=== PATIENT | male | born 1950 | race American Indian/Alaskan Native ===

== ENCOUNTER 2019-01-07 16:39 | Emergency (ER) | payer MEDICARE ==
[2019-01-07 17:10] VITALS: BP 110/51
[2019-01-07] MEDS ORDERED: REGLAN IV ONE (17:33)
--- NOTE | 2019-01-07 17:35 | Emergency Department Report ---
ED General Adult HPI - General Chief complaint: Dyspnea/Respdistress Stated complaint: DIFFICULTY BREATHING Time Seen by Provider: 01/07/19 17:24 Source: patient, RN notes reviewed, old records reviewed Mode of arrival: Stretcher Limitations: No Limitations - History of Present Illness Initial comments: This is a 68-year-old gentleman. The patient has a past medical history of end- stage renal disease, on dialysis. Typically gets dialysis Thursday, Thursday, Thursday. His last dialysis session was today. It was of normal length, duration. The patient reportedly had right lower hernia repair, electively, at [facility] a few days ago. He presents to the emergency room today with a complaint of shortness of breath and hiccups. He is not having abdominal pain, but he's not had a bowel movement since one day prior to his surgery. Shortness of breath is constant, does not radiate anywhere, is painless, and does not have exacerbating or relieving factors. Hiccups are intermittent since his surgery, intermittent, and do not have exacerbating or relieving factors. He denies new or different abdominal pain, chest pain, focal extremity weakness. -: days(s) Severity scale (0 -10): 0 Quality: other Consistency: other Improves with: other Worsens with: other Associated Symptoms: shortness of breath - Related Data Allergies Allergy/AdvReac Type Severity Reaction Status Date / Time No Known Allergies Allergy Verified 01/07/19 17:10 ED Review of Systems ROS: Stated complaint: DIFFICULTY BREATHING Other details as noted in HPI Constitutional: malaise Eyes: denies: vision change ENT: denies: epistaxis Respiratory: shortness of breath Cardiovascular: denies: chest pain Gastrointestinal: constipation. denies: abdominal pain ED Past Medical Hx - Past Medical History Previous Medical History?: Yes Hx Hypertension: Yes Hx Diabetes: Yes - Surgical History Past Surgical History?: Yes Additional Surgical History: hernia 4 days ago - Social History Smoking Status: Never Smoker Substance Use Type: None ED Physical Exam - General Limitations: No Limitations General appearance: alert, anxious, obese - Head Head exam: Present: atraumatic, normocephalic - Eye Eye exam: Present: normal appearance, EOMI. Absent: nystagmus - ENT ENT exam: Present: normal exam, normal orophraynx, mucous membranes moist, normal external ear exam - Neck Neck exam: Present: normal inspection, full ROM. Absent: tenderness, meningismus - Respiratory Respiratory exam: Present: decreased breath sounds. Absent: respiratory distress - Cardiovascular Cardiovascular Exam: Present: regular rate, normal rhythm, normal heart sounds. Absent: bradycardia, tachycardia, irregular rhythm, systolic murmur, diastolic murmur, rubs, gallop - GI/Abdominal GI/Abdominal exam: Present: soft, tenderness (appropriate postoperative tenderness, no rebound, guarding or peritoneal signs). Absent: distended, guarding, rebound, rigid, pulsatile mass - Rectal Rectal exam: Present: deferred - Extremities Exam Extremities exam: Present: normal inspection, full ROM, pedal edema, other (2+ pulses noted in the bilateral upper, lower extremities. Compartments soft. No long bony tenderness. The pelvis is stable.). Absent: calf tenderness - Back Exam Back exam: Present: normal inspection, full ROM. Absent: tenderness, CVA tenderness (R), paraspinal tenderness, vertebral tenderness - Neurological Exam Neurological exam: Present: alert, oriented X3, other (Extraocular movements intact. Tongue midline. No facial droop. Facial sensation intact to light touch in the V1, V2, V3 distribution bilaterally. 5 and 5 strength in 4 extremities.. Sensation is intact to light touch in 4 extremities.). Absent: motor sensory deficit - Psychiatric Psychiatric exam: Present: normal affect, normal mood - Skin Skin exam: Present: warm, dry, intact, normal color. Absent: rash ED Course Vital Signs 01/07/19 17:04 Temperature 97.2 F L Pulse Rate 91 H Respiratory 16 Rate Blood Pressure 110/51 O2 Sat by Pulse 100 Oximetry - Reevaluation(s) Reevaluation #1: 01/07/19 17:56 Differential diagnosis, including but not limited to: post operative hiccups, diaphragmatic irritation, hyperkalemia, acute coronary syndrome, pulmonary embolus, postoperative constipation, postoperative obstruction Assessment and plan: 68-year-old gentleman, on dialysis, with shortness of breath, hiccups, and constipation. The patient is afebrile, with reassuring vital signs. I recommended a CT scan of the chest to exclude pulmonary embolus, and CT scan of the abdomen and pelvis to exclude postoperative complication, obstruction. The patient is a difficult IV stick, and neither EMS, nor nursing staff were able to establish a peripheral upper extremity IV. This provider attempted right-sided external jugular IV placement, without success, as both sites in the right external jugular vein infiltrated. The patient is now declining additional attempts at IV placement, and he states he does not want medical care at this facility. The patient is going to sign out AGAINST MEDICAL ADVICE. The patient is alert and oriented 3, clinically sober, free from distracting injury, and exhibits decision-making capacity. The risks of leaving without a complete evaluation, including undiagnosed pulmonary embolus, acute coronary syndrome, hyperkalemia, with resultant , disability, paralysis, permanent loss of quality of life were discussed with the patient and family, who verbalized understanding. The patient was counseled to return to the ER right away if and when he changes his mind. ASAEL Holden also present and witnessed conversation 01/07/19 17:59 ED Medical Decision Making - Lab Data Vital Signs 01/07/19 17:04 Temperature 97.2 F L Pulse Rate 91 H Respiratory 16 Rate Blood Pressure 110/51 O2 Sat by Pulse 100 Oximetry - EKG Data -: EKG Interpreted by [facility] EKG shows normal: sinus rhythm Rate: normal - EKG Data 01/07/19 17:58 Sinus, 86 bpm, left axis deviation, left anterior fascicular block, incomplete right bundle branch block, abnormal EKG, not consistent with STEMI. Critical care attestation.: If time is entered above; I have spent that time in minutes in the direct care of this critically ill patient, excluding procedure time. ED Disposition Clinical Impression: Hiccups, ESRD (end stage renal disease) Disposition: DC-07 LEFT AGAINST MED ADVICE Is pt being admited?: No Does the pt Need Aspirin: No Condition: Undetermined Instructions: Chronic Kidney Disease (ED) Additional Instructions: As we discussed, you have left the hospital/emergency room AGAINST MEDICAL ADVICE. By leaving, you risked , disability, paralysis, permanent loss of quality of life. The ER is open 24 hours a day, 7 days a week. It never closes. Please return to the emergency room right away if and when you change your mind. If you decide not to return to the emergency room, please follow-up with the listed physician referrals as soon as possible. Referrals: KAYA JOLLEY MD [Primary Care Provider] - 3-5 Days
== END 2019-01-07 18:10 | disposition left against medical advice (07) ==
LOC: ED 16:39
DX: R06.6 Hiccough (principal); R06.02 Shortness of breath; K59.00 Constipation, unspecified; E11.22 Type 2 diabetes mellitus with diabetic chronic kidney disease; I12.0 Hypertensive chronic kidney disease with stage 5 chronic kidney disease or end stage renal disease; N18.6 End stage renal disease; Z99.2 Dependence on renal dialysis
CPT/HCPCS: 93005; 93010